=== PATIENT | male | born 1995 | race Caucasian/White ===

== ENCOUNTER → 2018-08-01 | Outpatient (CLI) | payer BC | LOC: COL.RAD 13:59 | DX: I86.1 Scrotal varices (principal); N50.82 Scrotal pain ==

== ENCOUNTER → 2019-10-10 | Outpatient (CLI) | payer BC | LOC: COL.RAD 11:36 | DX: N50.82 Scrotal pain (principal); N43.3 Hydrocele, unspecified ==

== ENCOUNTER 2020-10-31 12:52 | Emergency (ER) | payer OTHER ==
[~2020-10-31] VITALS: Ht 190.5 cm; Wt 77.3 kg
[2020-10-31 12:55] VITALS: TEMP 97.4
[2020-10-31 15:19] VITALS: BP 144/72; PULSE 62
[2020-10-31] MEDS ORDERED: AMOXICILLIN 8751 TAB PO (15:21)
[2020-10-31 22:18] LABS: HEPATITIS B SURFACE ANTIGEN Negative (Negative); HEPATITIS C VIRUS ANTIBODY Negative (Negative)
== END 2020-10-31 15:19 | disposition home or self-care (01) ==
LOC: COL.ER 12:52
PROVIDERS: Physician Assistant
DX: S01.85XA Open bite of other part of head, initial encounter (principal); W55.81XA Bitten by other mammals, initial encounter; Y92.834 Zoological garden (Zoo) as the place of occurrence of the external cause; Y99.0 Civilian activity done for income or pay

== ENCOUNTER 2020-11-07 13:07 | Outpatient (RCR) | payer BC ==
[~2020-11-07] VITALS: Ht 190.5 cm; Wt 72.7 kg
[~2020-11-07 13:07] MED LIST: AMOXICILLIN 8751 TAB PO
[2020-11-14 13:39] VITALS: BP 128/79; PULSE 84; TEMP 98
== END 2021-02-01 | disposition home or self-care (01) ==
LOC: EUO
DX: Z23 Encounter for immunization (principal); Z20.3 Contact with and (suspected) exposure to rabies